=== PATIENT | female | born 1995 | race Caucasian/White ===

== ENCOUNTER 2023-04-15 09:21 | Emergency (ER) | payer MEDICAID ==
[~2023-04-15] VITALS: Ht 160 cm; Wt 81.0 kg
[2023-04-15 09:26] VITALS: O2SAT 99
[2023-04-15] MEDS ORDERED: IBUP-2029 MT (11:17)
[2023-04-15 12:00] VITALS: BP 140/96; PULSE 75; RESP 18; TEMP 98.5
== END 2023-04-15 12:02 | disposition home or self-care (01) ==
LOC: ER 09:46
DX: M79.671 Pain in right foot (principal)
CPT/HCPCS: 73610; 81025; 99283